=== PATIENT | male | born 1995 | race Caucasian/White ===

== ENCOUNTER 2024-06-02 22:53 | Observation (INO) | payer OTHER ==
[2024-06-02 23:28] LABS: Absolute Lymphocytes (CBC) 0.8 K/uL (0.7-4.9); Absolute Monocytes 0.3 K/uL (0.1-1.3); Absolute Neutrophil 6.6 K/uL (1.8-8.0); Basophils % 0.5 % (0-1.3); Hematocrit 43.5 % (39.6-49.0); Lymphocytes % 10.5 % (15.3-44.8); MCH 30.3 pg (27.0-35.0); MCHC 34.4 g/dL (32.0-36.0); MCV 88.2 fL (80-100); MPV 10.1 fL (7.6-11.3); Monocytes % 4.2 % (3.3-12.3); Neutrophils % 84.8 % (41.7-73.7); Nucleated Red Blood Cells % 0.3 % (0-0); Platelets 164 thou/uL (152-406); RBC Red Blood Cell Count 4.93 M/uL (4.33-5.43); Red Cell Distribution Width 13.3 % (12.1-15.2)
[2024-06-02] MEDS ORDERED: NA CHLORIDE 0.9% 1,000 ML ONE (23:32)
[2024-06-02 23:54] LABS: ALT/SGPT 40 U/L (16-61); AST/SGOT 14 U/L (15-37); Albumin 4.4 g/dL (3.4-5.0); Albumin/Globulin Ratio 1.3 (1.1-1.8); Alkaline Phosphatase 69 U/L (45-117); Anion Gap 8.6 mEq/L (5.0-15.0); BUN Blood Urea Nitrogen 11 mg/dL (7-18); Bicarbonate 28 mEq/L (21-32); Bilirubin Total 0.5 mg/dL (0.2-1.0); Globulin 3.5 g/dL (2.3-3.5); Glomerular Filtration Rate 96 ml/min (=/>90); Glucose Level 183 mg/dL (74-106); Lipase 25 U/L (13-75); Potassium 3.6 mEq/L (3.5-5.1); Protein, Total 7.9 g/dL (6.4-8.2); Sodium Level 140 mEq/L (136-145)
[2024-06-02 23:55] LABS: Troponin High Sensitivity < 3.0 pg/mL (<58.9)
[2024-06-03 00:45] LABS: Specific Gravity 1.019 (1.005-1.030); Sqamous Epithelial None Seen /HPF (None Seen); Urine Bacteria None Seen /HPF (<20); Urine Bilirubin NEGATIVE (Negative); Urine Blood Negative (Negative); Urine Clarity Clear (Clear); Urine Color Light-Yellow (Yellow); Urine Culture Reflex Order NOT NEEDED; Urine Glucose TRACE (Negative); Urine Ketones NEGATIVE (Negative); Urine Microscopic Reflex YN ORDER UMIC; Urine Mucus Slight /HPF (None Seen); Urine Nitrite NEGATIVE (Negative); Urine Protein NEGATIVE (Negative); Urine RBC <5 /HPF (None Seen); Urine Urobilinogen Normal (Normal); Urine WBC <5 /HPF (<5)
--- NOTE | 2024-06-03 00:47 | ER ---
Nurse's Notes [facility] Name: Mason Chapa Age: 28 yrs Sex: Male : 1995 Arrival Date: 06/02/2024 Time: 22:53 Bed 2 Private MD: Diagnosis: Abdominal pain, Generalized Presentation: 06/02 23:04 Chief complaint: EMS states: EMS was toned out for chest pain. upon arrival, pt's chest kd3 pain had improved. PT reports having severe abdominal pain in the right lower quadrant. Pt was seen in the ER yesterday for pain in the left upper quadrant. Pt states that the pain he experienced yesterday was not accompanied by chest pain at all. PT states he has no history of anxiety or panic attacks. PT HR on EMS arrival on scene was 140's. Now VSS. EKG performed by this RN in room. NSR. Coronavirus screen: Vaccine status: Patient reports being unvaccinated. Ebola Screen: No symptoms or risks identified at this time. Initial Sepsis Screen: Does the patient meet any 2 criteria? No. Patient's initial sepsis screen is negative. Does the patient have a suspected source of infection? No. Patient's initial sepsis screen is negative. Risk Assessment: Do you want to hurt yourself or someone else? Patient reports no desire to harm self or others. Onset of symptoms was June 02, 2024. 23:04 Method Of Arrival: EMS: [facility] kd3 23:04 Acuity: JORDY 3 kd3 Triage Assessment: 23:07 General: Appears uncomfortable, Behavior is cooperative, anxious. Pain: Complains of kd3 pain in right lower quadrant. Historical: - Allergies: 23:07 No Known Allergies; kd3 - Immunization history:: Adult Immunizations up to date. - Infectious Disease History:: Denies. - Social history:: Smoking status: Patient denies any tobacco usage or history of. Screenin:08 [facility] ED Fall Risk Assessment (Adult) History of falling in the last 3 months, kd3 including since admission No falls in past 3 months (0 pts) Confusion or Disorientation No (0 pts) Intoxicated or Sedated No (0 pts) Impaired Gait No (0 pts) Mobility Assist Device Used No (0 pt) Altered Elimination No (0 pt) Score/Fall Risk Level 0 - 2 = Low Risk Oriented to surroundings. Abuse screen: Denies threats or abuse. Denies injuries from another. Nutritional screening: No deficits noted. Tuberculosis screening: No symptoms or risk factors identified. Assessment: 23:28 General: Pt reported to this RN that he had taken a stool softener even tho he has been kd3 having diarrhea because he is "only going a little bit at a time". . 23:43 General: Pt is independently ambulatory to the restroom. . kd3 06/03 00:33 Reassessment: Patient and/or family updated on plan of care and expected duration. Pain kd3 level reassessed. Patient is alert, oriented x 3, equal unlabored respirations, skin warm/dry/pink. Patient states feeling better. Patient states symptoms have improved. Vital Signs: 06/02 23:04 BP 138 / 83; Pulse 90; Resp 16; Temp 98.2(O); Pulse Ox 100% on R/A; Weight 88.45 kg; kd3 Height 6 ft. 2 in. ; Pain 5/10; 06/03 00:33 BP 117 / 81; Pulse 78; Resp 19; Pulse Ox 99% on R/A; kd3 01:07 BP 123 / 78; Pulse 67; Resp 19; Pulse Ox 100% on R/A; kd3 06/02 23:04 Body Mass Index 25.04 (88.45 kg, 187.96 cm) kd3 06/02 23:04 Pain Scale: Adult kd3 ED Course: 06/02 22:55 Patient arrived in ED. rv1 22:55 Pamela Gordon FNP-C is [facility]. ec2 22:56 Gonzalo Jaimes MD is Attending Physician. ec2 23:03 Marzena Mercer, PETER is Primary Nurse. kd3 23:07 Triage completed. kd3 23:07 Arm band placed on right wrist. EKG completed in triage. Results shown to . kd3 23:08 Patient has correct armband on for positive identification. Provided Education on: kd3 Chest pain . 23:09 EKG done, by ED staff, reviewed by Pamela SANTACRUZ. kd3 23:18 CBC with Diff Sent. kd3 23:18 CMP Sent. kd3 23:18 Lipase Sent. kd3 23:18 Troponin HS Sent. kd3 23:18 No provider procedures requiring assistance completed. Inserted saline lock: 20 gauge kd3 in right antecubital area, using aseptic technique. Blood collected. Flushed with 10 mL NS. 23:32 XRAY Chest (1 view) In Process Unspecified. EDMS 23:51 CT Stone Protocol In Process Unspecified. EDMS 06/03 00:32 Urinalysis w/ reflexes Sent. kd3 00:52 Zana Andrews MD is Hospitalizing Provider. kb Administered Medications: 06/02 23:34 Drug: NS 0.9% IV 1000 ml IV at 1 bolus Per protocol; 1000 mL bolus Route: IV; Rate: 1 kd3 bolus; Site: right antecubital; 06/03 01:07 Follow up: IV Status: Completed infusion; IV Intake: 1000ml kd3 Medication: 06/02 23:08 VIS not applicable for this client. kd3 Intake: 06/03 01:07 IV: 1000ml; Total: 1000ml. kd3 Outcome: 00:46 Discharge ordered by . kb 00:53 Decision to Hospitalize by Provider. kb 01:55 Patient left the ED. bm8 Signatures: Dispatcher [employer] EDMS Pamela Gordon, PUBLIC HEALTH MICROBIOLOGIST-C PUBLIC HEALTH MICROBIOLOGIST-CkaMrzena Robertson, RN RN kd3 Viktoria Panda rv1 Gonzalo Jaimes MD MD ec2 Clarence Chong, RN RN bm8
--- NOTE | 2024-06-03 00:47 | EDPHYS ---
Physician Documentation [facility] Name: Mason Chapa Age: 28 yrs Sex: Male : 1995 Arrival Date: 06/02/2024 Time: 22:53 Bed 2 Private MD: ED Physician Gonzalo Jaimes HPI: 06/02 23:16 This 28 yrs old Male presents to ER via EMS with complaints of Chest Pain, Abdominal kb Pain. 23:16 Pt is a 28 year old male who presents for chest pain and sharp RLQ pain that started kb this evening. Denies nausea, vomiting, fever, shortness of breath. States he was told he had constipation some time ago so he did take a laxative today which has caused some diarrhea. States the chest pain is getting better.. Historical: - Allergies: 23:07 No Known Allergies; kd3 - Immunization history:: Adult Immunizations up to date. - Infectious Disease History:: Denies. - Social history:: Smoking status: Patient denies any tobacco usage or history of. ROS: 23:15 Constitutional: As per HPI kb Exam: 23:15 Constitutional: This is a well developed, well nourished patient who is awake, alert, kb and in no acute distress. Head/Face: Normocephalic, atraumatic. ENT: Moist Mucous membranes Cardiovascular: Regular rate Respiratory: Respirations even and unlabored. No increased work of breathing. Talking in full sentences Skin: Warm, dry with normal turgor. Normal color. MS/ Extremity: Pulses equal, no cyanosis. Neurovascular intact. Full, normal range of motion. Neuro: Awake and alert, GCS 15, oriented to person, place, time, and situation. Moves all extremities. Normal gait. 23:15 Abdomen/GI: Inspection: abdomen appears normal, Bowel sounds: normal, Palpation: soft, in all quadrants, mild abdominal tenderness, in the right upper quadrant and right lower quadrant, 23:17 ECG was reviewed by the Attending Physician. kb Vital Signs: 23:04 BP 138 / 83; Pulse 90; Resp 16; Temp 98.2(O); Pulse Ox 100% on R/A; Weight 88.45 kg; kd3 Height 6 ft. 2 in. ; Pain 5/10; 06/03 00:33 BP 117 / 81; Pulse 78; Resp 19; Pulse Ox 99% on R/A; kd3 01:07 BP 123 / 78; Pulse 67; Resp 19; Pulse Ox 100% on R/A; kd3 06/02 23:04 Body Mass Index 25.04 (88.45 kg, 187.96 cm) 3 06/02 23:04 Pain Scale: Adult kd3 MDM: 06/02 22:57 Patient medically screened. kb 23:16 Data reviewed: vital signs, nurses notes. Historians other than the Patient: EMS: [facility]. 06/03 00:50 Differential diagnosis: appendicitis, NC, abnormal ekg, colitis, enteritis. kb Consideration of Admission/Observation Patient was admitted/placed on observation. Escalation of care including admission/observation considered. Management of patient was discussed with the following: Veterinary Physiologist: Dr Andrews accepts pt for admission. Recommends repeat labs in AM, NPO, no antibiotics at this time. Counseling: I had a detailed discussion with the patient and/or guardian regarding the historical points, exam findings, and any diagnostic results supporting the discharge/admit diagnosis, lab results, radiology results, the need for further work-up and treatment in the hospital. 06/02 22:58 Order name: CBC with Diff; Complete Time: 23:29 kb 06/02 22:58 Order name: CMP; Complete Time: 23:58 kb 06/02 22:58 Order name: Lipase; Complete Time: 23:58 kb 06/02 22:58 Order name: Urinalysis w/ reflexes; Complete Time: 00:49 kb 06/02 22:58 Order name: Troponin HS; Complete Time: 23:58 kb 06/02 22:58 Order name: XRAY Chest (1 view) 06/02 23:16 Order name: CT Stone Protocol 06/02 22:58 Order name: IV Saline Lock; Complete Time: 23:18 kb 06/02 22:58 Order name: Labs collected and sent; Complete Time: 23:18 kb 06/02 22:58 Order name: EKG - Nurse/Tech; Complete Time: 23:03 kb EC/30 23:17 Rate is 83 beats/min. Rhythm is regular. QRS [place] is Normal. AR interval is normal at kb 142 msec. QRS interval is normal at 92 msec. QT interval is normal at 451 msec. Administered Medications: 23:34 Drug: NS 0.9% IV 1000 ml IV at 1 bolus Per protocol; 1000 mL bolus Route: IV; Rate: 1 kd3 bolus; Site: right antecubital; 06/03 01:07 Follow up: IV Status: Completed infusion; IV Intake: 1000ml kd3 Disposition Summary: 06/03/24 00:53 Hospitalization Ordered Notes: Hospitalization Status: Observation kb Provider: Zana Andrews Location: Telemetry/MedSurg (observation)(06/03/24 00:53) kb Condition: Stable(06/03/24 00:53) kb Problem: new kb Symptoms: are unchanged kb Bed/Room Type: Standard Room Assignment: 409(06/03/24 01:15) jb4 Diagnosis - Abdominal pain, Generalized kb Forms: - Medication Reconciliation Form kb - SBAR form kb - Leadership Thank You Letter Addendum: 06/04/2024 02:44 I was immediately available for consultation during this patient's visit. I did not e c2 personally see the patient or discuss the patient with the ELIZABETH. . Signatures: Dispatcher [employer] [facility] Pamela Gordon, TRUCK DRIVING-C TRUCK DRIVING-Ckb Zana Curry, RN RN jb4 Marzena Mercer RN RN kd3 Gonzalo Jaimes MD MD ec2 Corrections: (The following items were deleted from the chart) 06/02 22:58 22:58 CBC+H.LAB.BRZ ordered. [facility] 22:58 22:58 COMPREHENSIVE METABOLIC PANEL+C.LAB.BRZ ordered. [facility] 22:58 22:58 LIPASE+C.LAB.BRZ ordered. [facility] 22:58 22:58 Urinalysis+U.LAB.BRZ ordered. [facility] 22:58 22:58 Troponin High Sensitivity+C.LAB.BRZ ordered. [facility] 22:58 22:58 Chest Single View+RAD.RAD.BRZ ordered. [facility] 06/03 00:47 00:46 Differential diagnosis: GERD, Mi, abnormal EKG sunitha 00:47 00:46 Counseling: I had a detailed discussion with the patient and/or guardian sunitha regarding the historical points, exam findings, and any diagnostic results supporting the discharge/admit diagnosis, lab results, radiology results, the need for outpatient follow up, a family practitioner, to return to the emergency department if symptoms worsen or persist or if there are any questions or concerns that arise at home, kb 00:48 00:46 Home kb kb 00:48 00:46 Stable kb kb 00:48 00:46 Chest pain, unspecified kb kb 01:15 00:53 kb jb4
[2024-06-03 02:18] VITALS: BMI 25.0
[2024-06-03] MEDS ORDERED: MORPHINE 4 MG/ML SYR IV PRN (02:19)
[2024-06-03] MEDS ORDERED: ONDANSETRON 4 MG/2 ML VIAL IV PRN (02:19)
[2024-06-03 02:35] VITALS: O2SAT 99
[2024-06-03] MEDS: NA CHLORIDE 0.9% 1,000 ML IV SCH (02:39)
[2024-06-03 06:37] LABS: Absolute Eosinophils 0.1 K/uL (0-0.5); Absolute Lymphocytes (CBC) 1.3 K/uL (0.7-4.9); Absolute Monocytes 0.6 K/uL (0.1-1.3); Absolute Neutrophil 5.2 K/uL (1.8-8.0); Basophils % 0.5 % (0-1.3); Eosinophils % 1.1 % (0-4.4); Hematocrit 40.3 % (39.6-49.0); Lymphocytes % 18.2 % (15.3-44.8); MCH 30.7 pg (27.0-35.0); MCHC 34.7 g/dL (32.0-36.0); MCV 88.5 fL (80-100); MPV 9.6 fL (7.6-11.3); Monocytes % 7.9 % (3.3-12.3); Neutrophils % 72.3 % (41.7-73.7); Nucleated Red Blood Cells % 0.2 % (0-0); Platelets 156 thou/uL (152-406); RBC Red Blood Cell Count 4.56 M/uL (4.33-5.43); Red Cell Distribution Width 13.3 % (12.1-15.2)
[2024-06-03 06:58] LABS: Albumin 3.9 g/dL (3.4-5.0); Albumin/Globulin Ratio 1.3 (1.1-1.8); Anion Gap 7.5 mEq/L (5.0-15.0); Bilirubin Direct 0.2 mg/dL (0-0.2); Bilirubin Indirect, Calculated 0.4 mg/dL (0.2-0.8); Bilirubin Total 0.6 mg/dL (0.2-1.0); Globulin 3.1 g/dL (2.3-3.5); Potassium 3.5 mEq/L (3.5-5.1)
--- NOTE | 2024-06-03 11:42 | EKG ---
Test Date: 2024-06-02 Test Time: 23:00:07 Principal Systems Architect: ARNULFO MEASUREMENT RESULTS: Intervals: Rate: 83 WV: 142 QRSD: 92 QT: 384 QTc: 451 [place]: P: 77 WV: 142 QRS: 73 T: 65 INTERPRETIVE STATEMENTS: Normal sinus rhythm Normal ECG No previous ECG available for comparison Electronically Signed On 06-03-24 11:40:54 CDT by Nnamdi Sanchez
[2024-06-03 11:44] VITALS: BP 137/68; TEMP 97.5
--- NOTE | 2024-06-03 12:31 | RAD REPORT ---
EXAM DESCRIPTION: CT - Stone Protocol - 06/03/2024 6:44 am CLINICAL HISTORY: 28 years Male; ABD PAIN; Bed Name: 2 TECHNIQUE: CT of the abdomen and pelvis without contrast. All CT scans at this facility use dose modulation, iterative reconstruction, and/or weight based dosi ng when appropriate to reduce radiation dose to as low as reasonably achievable. COMPARISON: CT abdomen pelvis 06/01/2024 FINDINGS: Lower thorax: Lung bases are clear Abdomen: Stomach: Within normal limits Liver: No focal lesions. No intrahepatic ductal distention. Gallbladder: Nondistended Pancreas: Within normal limits Spleen: Within normal limits Right kidney: No hydronephrosis. No renal or ureteral calculi. Left kidney: No hydronephrosis. No renal or ureteral calculi. Adrenal glands: Within normal limits Vascular structures: Within normal limits (although limited evaluation on noncontrast exam). Lymph nodes: No lymphadenopathy by size criteria Pelvis: Small bowel: Mildly distended fluid-filled loops of small bowel left abdomen with mild associated mes enteric stranding. Appendix: Mildly distended measuring up to 7 mm without significant associated surrounding stranding, grossly unchanged in appearance compared to 06/01/2024. Colon: No distention or acute pericolonic edema. Peritoneum: No free intraperitoneal fluid or air. Bones: No acute bone findings. Bladder: Unremarkable. Reproductive organs: No acute findings. Note that evaluation of the bowel and solid organs is somewhat limited due to lack of intravenous and oral contrast. IMPRESSION: 1. Mildly distended fluid-filled loops of small bowel in the left abdomen with mild as sociated mesenteric stranding, can be seen in setting of enteritis. 2. Mildly distended appendix measuring up to 7 mm without significant associated surrounding strand ing, grossly unchanged in appearance compared to 06/01/2024. Findings are equivocal for acute appendic itis. Electronically signed by: Perry Tiwari MD 06/03/2024 12:32 AM CDT RP Z9 Due to temporary technical issues with the PACS/Fluency reporting system, reports are being signed by the in house radiologist without review as a courtesy to ensure prompt reporting. The interpreting r adiologist is fully responsible for the content of the report.
--- NOTE | 2024-06-03 12:32 | RAD REPORT ---
EXAM DESCRIPTION: RAD - Chest Single View - 06/02/2024 11:30 pm CLINICAL HISTORY: 1 years Male, Chest pain. COMPARISON: None. IMPRESSION: No focal lung consolidation. No pleural effusion. No pneumothorax. Cardiomediastinal silhouette is within normal limits. No acute osseous abnormality. Electronically signed by: Kole Kim DO 06/03/2024 12:02 AM CDT RP 9 Due to temporary technical issues with the PACS/Fluency reporting system, reports are being signed by the in house radiologist without review as a courtesy to ensure prompt reporting. The interpreting r adiologist is fully responsible for the content of the report.
--- NOTE | 2024-06-03 13:27 | P.HP ---
Date of Service: 06/03/24 PC: This 28-year-old male presented to emergency room with right-sided abdominal pain for diagnosis and treatment. HPC: This patient has been having abdominal pain since around 07 May. Describes it as being all over his abdomen. Sometimes it is in the left upper portion sometimes periumbilical sometimes in the right upper or towards the right back. He had been seen here on Saturday, was sent home but is per pain again returned last night. Describes it as severe,, but cramping discomfort. Feels like when he goes to the restroom that he needs to go, but nothing happens. PSHx: Negative PMHx: Negative Social Hx: No known allergies Sys R: No cough, wheeze, shortness of breath. Has relatively good appetite. Has not noticed any blood in his stool. O/E: Awake alert vital signs are stable does not appear ill HEENT: Within normal limits Chest: Air entry equal bilaterally Abd: Soft nontender no guarding or rebound [place]: Intact Data: CT scan demonstrates nonspecific changes of possible enteritis. Clinically the patient does not have appendicitis at this and there are no strong signs on CT scan to contradict that Impression: Abdominal pain with enteritis Plan: This patient is from the [facility]. He does not require any acute surgical intervention at the moment. He would like to be discharged and he can follow-up with a physician namely a GI doctor in his area up in [place]. I told him to keep himself well-hydrated, and to follow-up with his own physician. His has been calling around [she is in [place] at the moment] for early follow- up appointments. His dad is here they are going to discuss matters, and most likely opt to be discharged from the hospital as I had suggested observation for 1 more day if they are not comfortable going home.
--- NOTE | 2024-06-03 14:50 | P.DS ---
Admission Date: 06/03/24 Discharge Date: 06/03/24 Disposition: ROUTINE DISCHARGE Discharge Condition: GOOD Reason for Admission: Acute abdominal pain Brief History of Present Illness: PC: [This patient has been feeling unwell with abdominal pain since May 07. He describes the pain as being in his left upper quadrant right lower middle portion of the left side etc. Pain resolved for a while, but then came back again. Last night the pain was so severe he thought he was having a heart attack. He had been seen the night previous to this in the emergency. A he was told to come back should he have any questions or problems. The pain came back so he returned as told. HPC: Patient states he has really had pain like this before for, and it all seems to start around May 07. PSHx: Negative PMHx: No other medical problems Social Hx: No known allergies Sys R: Otherwise healthy male. No change in bowel habit. Has not noticed any blood or mucus in his stool. O/E: Awake alert vital signs are stable HEENT: Not jaundiced Chest: Air entry equal bilaterally Abd: Soft nontender no guarding or rebound [place]: Intact Data: Normal white cell count, mild shift CT scan however does not show any definitive signs of acute appendicitis or any acute process in the abdomen. Nonspecific changes suggestive of possible gastroenteritis. Impression: Abdominal pain with enteritis Plan: This patient is from out of town. He has been down here working. He is home-based however is up towards dialysis. At the current time he does not require any surgical intervention. I recommend that he be discharged as he wants to go back up to [facility] to see physicians in his area or in his insurance plan. This seems a reasonable to me, and I will discharge him at this time. His father is here with him. His apparently is already on the phone trying to arrange appointments with doctors and train controller. We will send him with all of our lab work, CT scans and reports. Hospital Course: The patient was evaluated in the emergency room, and was admitted for observation today. His abdomen is relatively benign, with no guarding or rebound. He is able to keep food down, he is having some discomfort but a lot better than it has been over the last few days. He would prefer to have his care up in the [facility]. Vital Signs/Physical Exam: Temp Pulse Resp BP Pulse Ox 97.5 F 58 16 137/68 98 06/03/24 11:43 06/03/24 11:43 06/03/24 11:43 06/03/24 11:43 06/03/24 11:43 Laboratory Data at Discharge: WBC 7.20 thou/uL (4.3-10.9) 06/03/24 06:23 Hgb 14.0 g/dL (13.6-17.9) 06/03/24 06:23 Hct 40.3 % (39.6-49.0) 06/03/24 06:23 Plt Count 156 thou/uL (152-406) 06/03/24 06:23 Sodium 141 mEq/L (136-145) 06/03/24 06:23 Potassium 3.5 mEq/L (3.5-5.1) 06/03/24 06:23 BUN 10 mg/dL (7-18) 06/03/24 06:23 Creatinine 0.88 mg/dL (0.70-1.30) 06/03/24 06:23 Glucose 119 mg/dL (74-106) H 06/03/24 06:23 Total Bilirubin 0.6 mg/dL (0.2-1.0) 06/03/24 06:23 AST 13 U/L (15-37) L 06/03/24 06:23 ALT 38 U/L (16-61) 06/03/24 06:23 Alkaline Phosphatase 55 U/L (45-117) D 06/03/24 06:23 Lipase 26 U/L (13-75) 06/03/24 06:23 Diet: Regular Activity: Ad bill Followup: NONE,NONE [Primary Care Provider] -
== END 2024-06-03 15:04 | disposition home or self-care (01) ==
LOC: ER 22:53 → ERHOLD 06-03 00:54 → 4TH 06-03 01:43
PROVIDERS: ADMIT Surgery; ATTEND Surgery
DX: R10.12 Left upper quadrant pain (principal); R07.9 Chest pain, unspecified
CPT/HCPCS: 93005; 85025 ×2; 81001; 80048; 36415; 80076; 84484; 83690 ×2; 80053; 76377; 74176; 71045; J7030 ×2; 96360; 96361; 99284; G0378